=== PATIENT | male | born 1965 ===

== ENCOUNTER → 2023-11-21 06:32 | Day surgery (SDC) | payer OTHER, SELFPAY ==
[2023-11-21 07:34] LABS: Glucose - Point of Care 136 mg/dl (70-99)
== END ==
LOC: GI 06:32
PROVIDERS: ATTENDING PHYSICIAN Internal Medicine; FAMILY PHYSICIAN Family Medicine
DX: Z12.11 Encounter for screening for malignant neoplasm of colon (principal); K57.30 Diverticulosis of large intestine without perforation or abscess without bleeding
CPT/HCPCS: G0121; 82962